=== PATIENT | female | born 1975 | race Hispanic/Latino ===

== ENCOUNTER 2020-06-18 16:11 | Outpatient (CLI) | payer BC | END 2020-06-18 16:12 | disposition home or self-care (01) | LOC: BICRAD 16:11 | PROVIDERS: ATTEND Family Medicine | DX: M54.5 Low back pain (principal) | CPT/HCPCS: 72100 ==

== ENCOUNTER 2024-03-01 20:45 | Emergency (ER) | payer BC ==
[2024-03-01] MEDS ORDERED: diphenhydrAMINE 25 MG CAP ONE (22:06)
[2024-03-01] MEDS ORDERED: methylPREDNISolone Sod Succ/PF 125 MG/2 ML VIAL ONE (22:06)
== END 2024-03-01 23:19 | disposition home or self-care (01) ==
LOC: ERS 20:45
DX: L25.9 Unspecified contact dermatitis, unspecified cause (principal)
CPT/HCPCS: 96372; 99282; J2919